=== PATIENT | male | born 1980 | race Caucasian/White ===

== ENCOUNTER 2016-09-03 05:25 | Emergency (ER) | payer OTHER ==
[~2016-09-03] VITALS: Ht 190.5 cm; Wt 82.1 kg
[2016-09-03] MEDS ORDERED: OMEP20TA PO (05:34)
[2016-09-03] MEDS ORDERED: RANI150C PO (05:34)
[2016-09-03] MEDS ORDERED: NS 1,000 ML IV ONE (06:00)
[2016-09-03 06:36] LABS: ALBUMIN 4.1 GM/DL (3.2-5.2); ALBUMIN/GLOBULIN RATIO 1.14 (1.00-1.93); ALKALINE PHOSPHATASE 85 U/L (45-117); ALT/SGPT 35 U/L (12-78); ANION GAP 7 MEQ/L (8-16); AST/SGOT 16 U/L (15-37); BILIRUBIN,DIRECT 0.2 MG/DL (0.0-0.2); BILIRUBIN,TOTAL 0.8 MG/DL (0.2-1.0); BLOOD UREA NITROGEN 18 MG/DL (7-18); CARBON DIOXIDE LEVEL 28 MEQ/L (21-32); CHLORIDE LEVEL 106 MEQ/L (98-107); FREE T4 1.14 NG/DL (0.76-1.46); GLOMERULAR FILTRATION RATE > 60.0 (>60); GLUCOSE, FASTING 96 MG/DL (70-105); SODIUM LEVEL 141 MEQ/L (136-145); TOTAL PROTEIN 7.7 GM/DL (6.4-8.2)
[2016-09-03] MEDS ORDERED: GI COCKTAIL 50ML BTL(HYOSCYAMINE/MAALOX/LIDOCAINE VISCOUS)(1:3:1) PO ONE (07:15)
[2016-09-03] MEDS ORDERED: FAMOTIDINE IV BAG 20 MG in APPROPRIATE DILUENT 1 EA IV ONE (07:15)
[2016-09-03 07:16] LABS: BASO % 0.4 % (0.0-1.0); EOS % 0.5 % (0.0-3.0); LARGE UNSTAINED CELL # 0.1 K/mm3 (0.0-0.4); LARGE UNSTAINED CELL % 1.2 % (0.0-4.0); LYMPH # 1.5 K/mm3 (1.5-4.5); LYMPH % 19.9 % (24.0-44.0); MEAN CORPUSCULAR HEMOGLOBIN 31.3 pg (27.0-33.0); MEAN CORPUSCULAR HGB CONC 35.9 g/dl (32.0-36.5); MEAN CORPUSCULAR VOLUME 87.2 fl (80.0-96.0); MONO # 0.5 K/mm3 (0.0-0.8); MONO % 6.8 % (0.0-5.0); NEUTROPHILS # 5.1 K/mm3 (1.8-7.7); NEUTROPHILS % 71.2 % (36.0-66.0); PLATELET COUNT, AUTOMATED 157 k/mm3 (150-450); RED CELL DISTRIBUTION WIDTH 12.7 % (11.5-14.5); WHITE BLOOD COUNT 7.2 K/mm3 (4.0-10.0)
[2016-09-03] MEDS ORDERED: PROT1TAB2 PO (07:45)
[2016-09-03 08:16] VITALS: BP 120/72
--- NOTE | 2016-09-03 21:44 | ECGEPIP ---
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
== END 2016-09-03 08:18 | disposition home or self-care (01) ==
LOC: M ED 06:11
DX: K21.0 Gastro-esophageal reflux disease with esophagitis (principal)

== ENCOUNTER → 2016-10-06 | Outpatient (CLI) | payer OTHER ==
[~2016-10-06] VITALS: Ht 180.3 cm; Wt 83.9 kg
[~2016-10-06] MED LIST: LIDOCAINE 2% INJ 100 MG/5 ML SDV (FOR ANES.) As Ordered ONE; MAXA10TA14 PO; NS 1,000 ML IV ONE; OMEP20TA PO; PROPOFOL 200 MG/20 ML VIAL As Ordered ONE; PROT1TAB2 PO; PROTPAK PO; RANI150C PO
--- NOTE | 2016-10-06 15:28 | ROOR ---
Patient Name: Rudy Gordon Procedure Date: 10/06/2016 3:17 PM Date of : 1980 Age: 36 Room: [facility] Gender: Male Note Status: Finalized Procedure: Upper GI endoscopy Indications: Heartburn, Suspected esophageal reflux Providers: Yuniel SEGAL MD Referring MD: CONRADO ENCISO MD Requesting Provider: Medicines: Monitored Anesthesia Care Complications: No immediate complications. Procedure: Pre-Anesthesia Assessment: - The heart rate, respiratory rate, oxygen saturations, blood pressure, adequacy of pulmonary ventilation, and response to care were monitored throughout the procedure. The Endoscope was introduced through the mouth, and advanced to the second part of duodenum. The upper GI endoscopy was accomplished without difficulty. The patient tolerated the procedure well. Findings: The esophagus was normal. The stomach was normal. The examined duodenum was normal. Impression: - Normal esophagus. - Normal stomach. - Normal examined duodenum. - No specimens collected. Recommendation: - Continue present medications. - Observe patient's clinical course. - Follow an antireflux regimen. Yuniel Segal MD Yuniel SEGAL MD 10/06/2016 3:28:41 PM This report has been signed electronically. Number of Addenda: 0 Note Initiated On: 10/06/2016 3:17 PM Estimated Blood Loss: Estimated blood loss: none.
[2016-10-06 15:58] VITALS: BP 140/67
== END | disposition home or self-care (01) ==
LOC: M OPP 13:54
PROVIDERS: ATTEND Internal Medicine Gastroenterology
DX: R12 Heartburn (principal); R10.13 Epigastric pain; M54.5 Low back pain; M19.90 Unspecified osteoarthritis, unspecified site; M51.9 Unspecified thoracic, thoracolumbar and lumbosacral intervertebral disc disorder; K21.9 Gastro-esophageal reflux disease without esophagitis; G43.909 Migraine, unspecified, not intractable, without status migrainosus; Z79.899 Other long term (current) drug therapy

== ENCOUNTER → 2017-12-18 | Outpatient (REF) | payer OTHER ==
[2017-12-18 14:23] LABS: % NORMAL FORMS 9 % (>=4); IMMOTILITY 55 %; NON PROGRESSIVE MOTILITY (c) 8 %; PROGRESSIVE MOTILITY (a) 37 % (>=32); SEMEN APPEARANCE OPAQUE (OPAQUE); SEMEN VISCOSITY VISCOUS (LIQUID); SPERM CONCENTRATION 137.7 M/ml (>=15.0); SPERM# 275.5 M/Ejac (>=39); TOTAL MOTILITY 45 % (>=40); WBC CONCENTRATION <=1 M/ml (<=1 M/ml)
[2017-12-18 14:24] LABS: TOTAL FUNCTIONAL 21.2 M/Ejac.; TOTAL PROGRESSIVE SPERM 101.6 M/Ejac.
== END ==
LOC: M LAB REF 14:02
DX: Z31.41 Encounter for fertility testing (principal)

== ENCOUNTER → 2019-10-19 | Outpatient (CLI) | payer OTHER ==
[~2019-10-19] MED LIST changes: +CYCL-707 PO; +LIDOCAINE 1% MDV 20ML VIAL As Ordered ONE; -LIDOCAINE 2% INJ 100 MG/5 ML SDV (FOR ANES.) As Ordered ONE; -NS 1,000 ML IV ONE; +OMEP-358 PO; -OMEP20TA PO; -PROPOFOL 200 MG/20 ML VIAL As Ordered ONE; +ZYRTTAB8 PO
[2019-10-19 13:52] VITALS: BP 145/86
--- NOTE | 2019-10-19 16:28 | REP ---
ULTRASOUND-GUIDED RIGHT THYROID BIOPSY The procedure was performed under the direct supervision of Dr. Boo. The risks and benefits of the procedure were explained to the patient and informed consent was obtained. The right thyroid nodule was localized using ultrasound guidance. The skin was prepped and draped in a sterile fashion. 1% lidocaine was used as a local anesthetic. Using ultrasound guidance four fine-needle aspirations were obtained using 25 gauge needles. The patient tolerated the procedure well and there were no immediate complications. After the appropriate amount of monitored convalescence the patient was discharged from the department. Electronically Signed by MIKIE Myers 10/19/2019 03:57 P Electronically Signed by Andrea Boo MD 10/19/2019 04:19 P
== END ==
LOC: M IRPRO 13:02
PROVIDERS: ATTEND Family Medicine
DX: E04.1 Nontoxic single thyroid nodule (principal); M54.2 Cervicalgia

== ENCOUNTER → 2023-01-06 | Outpatient (CLI) | payer OTHER ==
[~2023-01-06] MED LIST changes: -LIDOCAINE 1% MDV 20ML VIAL As Ordered ONE; -MAXA10TA14 PO; +RIZA10TA64 PO
== END ==
LOC: M RAD 08:43
PROVIDERS: ATTEND Physician Assistant Medical
DX: R10.11 Right upper quadrant pain (principal)

== ENCOUNTER 2023-02-10 09:01 | Day surgery (SDC) | payer OTHER ==
[~2023-02-10] VITALS: Ht 182.9 cm; Wt 89.5 kg
[~2023-02-10 09:01] MED LIST changes: +NS 1,000 ML IV ONE
[2023-02-10] MEDS ORDERED: propofoL 200 MG/20 ML VIAL As Ordered ONE ×2 (10:09→10:14)
[2023-02-10] MEDS ORDERED: LIDOCAINE 2% 100MG/5ML SDV (FOR ANES.) As Ordered ONE (10:09)
[2023-02-10] MEDS ORDERED: fentaNYL 100 MCG/2 ML INJECTION As Ordered ONE (10:16)
[2023-02-10 10:37] VITALS: TEMP 96.9
[2023-02-10 11:50] VITALS: BP 143/88; O2SAT 95
== END 2023-02-10 12:33 | disposition home or self-care (01) ==
LOC: M OPP 09:01
PROVIDERS: ATTEND Internal Medicine Gastroenterology
DX: K64.8 Other hemorrhoids (principal); K57.30 Diverticulosis of large intestine without perforation or abscess without bleeding; R10.11 Right upper quadrant pain; R12 Heartburn; K21.9 Gastro-esophageal reflux disease without esophagitis; M19.90 Unspecified osteoarthritis, unspecified site; G43.909 Migraine, unspecified, not intractable, without status migrainosus; J45.909 Unspecified asthma, uncomplicated; G47.30 Sleep apnea, unspecified; Z79.899 Other long term (current) drug therapy
CPT/HCPCS: 43235; 45378; J3010

== ENCOUNTER → 2023-08-07 | Outpatient (CLI) | payer OTHER ==
[~2023-08-07] MED LIST changes: +DIFI200T PO; +HYDR2.5C21 PR; +MAGN400C2 PO; -NS 1,000 ML IV ONE
== END ==
LOC: M PLARAD 09:55
PROVIDERS: ATTEND Internal Medicine
DX: A69.22 Other neurologic disorders in Lyme disease (principal)

== ENCOUNTER → 2023-09-24 | Outpatient (CLI) | payer OTHER ==
[~2023-09-24] MED LIST changes: +LIDOCAINE 1% MDV 20ML VIAL As Ordered ONE
[2023-09-24 13:50] VITALS: BP 131/83; TEMP 98.2; O2SAT 95
== END ==
LOC: M IRPRO 13:47
PROVIDERS: ATTEND Otolaryngology
DX: E04.2 Nontoxic multinodular goiter (principal)

== ENCOUNTER → 2023-09-25 | Outpatient (CLI) | payer OTHER ==
[~2023-09-25] MED LIST changes: +E-Z-GAS II EFFERVESCENT PACKET (SODIUM BICARB./CITRIC ACID/SIMETHICONE) As Ordered ONE; +E-Z-HD 98% w/w 340GM SUSP BTL As Ordered ONE; +E-Z-PAQUE 96% w/w SUSP 176GM BTL As Ordered ONE; -LIDOCAINE 1% MDV 20ML VIAL As Ordered ONE
== END ==
LOC: M RAD 08:47
PROVIDERS: ATTEND Otolaryngology
DX: R13.10 Dysphagia, unspecified (principal); K44.9 Diaphragmatic hernia without obstruction or gangrene; K21.9 Gastro-esophageal reflux disease without esophagitis

== ENCOUNTER → 2024-01-26 | Outpatient (CLI) | payer OTHER ==
[~2024-01-26] MED LIST changes: +ALLE180T33 PO; +DULO1CAP5 PO; -E-Z-GAS II EFFERVESCENT PACKET (SODIUM BICARB./CITRIC ACID/SIMETHICONE) As Ordered ONE; -E-Z-HD 98% w/w 340GM SUSP BTL As Ordered ONE; -E-Z-PAQUE 96% w/w SUSP 176GM BTL As Ordered ONE; +PANT40TA29 PO
== END ==
LOC: M PLAIMG 12:55
PROVIDERS: ATTEND Dentist
DX: M26.659 Arthropathy of unspecified temporomandibular joint (principal)

== ENCOUNTER 2024-02-11 09:38 | Day surgery (SDC) | payer OTHER ==
[~2024-02-11] VITALS: Ht 180.3 cm; Wt 94.7 kg
[2024-02-11] MEDS: LR 1,000 ML IV SCH (10:03)
[2024-02-11] MEDS ORDERED: HYDROmorphone HCL 2MG/ML 1ML VIAL As Ordered ONE (11:16)
[2024-02-11] MEDS ORDERED: MIDAZOLAM INJ 2MG/2ML VIAL As Ordered ONE (11:17)
[2024-02-11] MEDS ORDERED: ONDANSETRON 4MG 2ML VIAL As Ordered ONE (11:17)
[2024-02-11] MEDS ORDERED: propofoL 200 MG/20 ML VIAL As Ordered ONE (11:17)
[2024-02-11] MEDS ORDERED: fentaNYL 100 MCG/2 ML INJECTION As Ordered ONE (11:17)
[2024-02-11] MEDS ORDERED: ROCURONIUM BROMIDE 50MG/5ML VIAL As Ordered ONE (11:18)
[2024-02-11] MEDS ORDERED: SUCCINYLCHOLINE 100MG/5ML SYRINGE As Ordered ONE (11:18)
[2024-02-11] MEDS ORDERED: LIDOCAINE 2% 100MG/5ML SDV (FOR ANES.) As Ordered ONE (11:18)
[2024-02-11] MEDS ORDERED: SUGAMMADEX SODIUM 500 MG/5 ML VIAL (BRIDION) As Ordered ONE (11:18)
[2024-02-11] MEDS ORDERED: ACETAMINOPHEN 1000MG 100ML IV BAG As Ordered ONE (11:27)
[2024-02-11] MEDS ORDERED: fentaNYL 100 MCG/2 ML INJECTION IV PRN (14:50)
[2024-02-11] MEDS: LIDOCAINE W/EPINEPHRINE 1% 20ML VIAL As Ordered ONE (14:52)
[2024-02-11] MEDS: ONDANSETRON 4MG 2ML VIAL IV PRN (16:05)
[2024-02-11] MEDS: oxyCODONE 5MG TAB PO PRN (16:05)
[2024-02-11] MEDS: HYDROMORPHONE HCL 0.5 MG/ 0.5 ML SYRINGE IV PRN (16:31)
[2024-02-11 20:30] VITALS: BP 118/72; TEMP 97.2; O2SAT 96
== END 2024-02-11 20:35 | disposition home or self-care (01) ==
LOC: M SDC 09:38
PROVIDERS: ATTEND Otolaryngology
DX: E04.1 Nontoxic single thyroid nodule (principal); R13.10 Dysphagia, unspecified; J45.909 Unspecified asthma, uncomplicated; G47.30 Sleep apnea, unspecified; K64.9 Unspecified hemorrhoids; Z79.899 Other long term (current) drug therapy; Z90.49 Acquired absence of other specified parts of digestive tract
CPT/HCPCS: 60220; 88307; J0131; J0330; J1100; J1170; J2250; J2405; J3010

== ENCOUNTER → 2024-06-28 | Outpatient (CLI) | payer OTHER | LOC: M RAD 13:49 | PROVIDERS: ATTEND Otolaryngology | DX: E04.2 Nontoxic multinodular goiter (principal) ==

== ENCOUNTER → 2024-07-07 | Outpatient (CLI) | payer OTHER ==
[2024-07-07 09:27] LABS: THYROID STIMULATING HORMONE 0.546 uIU/ML (0.55-4.78)
[2024-07-07 17:43] LABS: TOTAL T3 128.1 NG/DL (60.0-181.0)
[2024-07-07 17:44] LABS: THYROGLOBULIN ANTIBODY < 15.0 U/ML (<60.0); THYROID PEROXIDASE ANTIBODY < 28.0 U/ML (<60.0)
== END ==
LOC: M LAB 08:30
PROVIDERS: ATTEND Otolaryngology
DX: E04.2 Nontoxic multinodular goiter (principal)

== ENCOUNTER → 2024-07-08 | Outpatient (CLI) | payer OTHER ==
[2024-07-08 11:41] LABS: BASO % 0.2 % (0.0-1.0); HEMATOCRIT 50.2 % (42.0-52.0); HEMOGLOBIN 17.1 g/dl (13.5-17.5); LYMPH # 1.3 10^3/uL (1.5-5.0); MEAN CORPUSCULAR HEMOGLOBIN 30.8 pg (27.0-33.0); MEAN CORPUSCULAR HGB CONC 34.1 g/dl (32.0-36.5); MEAN CORPUSCULAR VOLUME 90.5 fl (80.0-96.0); MONO # 0.5 10^3/uL (0.0-0.8); MONO % 4.5 % (2.0-8.0); NEUTROPHILS # 8.6 10^3/uL (1.5-8.5); NEUTROPHILS % 82.7 % (36.0-66.0); PLATELET COUNT, AUTOMATED 283 10^3/uL (150-450); RED BLOOD COUNT 5.55 10^6/uL (4.30-6.10); WHITE BLOOD COUNT 10.4 10^3/uL (4.0-10.0)
[2024-07-08 11:46] LABS: ERYTHROCYTE SEDIMENTATION RATE 6 mm/hr (0-15)
[2024-07-08 12:18] LABS: HEMOGLOBIN A1c 4.9 % (4.0-6.0)
[2024-07-08 12:19] LABS: RHEUMATOID FACTOR QUANT < 3.5 IU/ML (<14)
[2024-07-08 12:26] LABS: ALKALINE PHOSPHATASE 77 U/L (40-129); ALT/SGPT 85 U/L (7.0-40); AST/SGOT 22 U/L (<34); BILIRUBIN,TOTAL 1.1 MG/DL (0.3-1.2); BLOOD UREA NITROGEN 16 MG/DL (9-23); CALCIUM LEVEL 9.3 MG/DL (8.5-10.1); CARBON DIOXIDE LEVEL 20 MMOL/L (20-31); CHLORIDE LEVEL 106 MMOL/L (98-107); CREATININE FOR GFR 0.82 MG/DL (0.70-1.30); FOLATE 10.8 NG/ML (>5.4); FREE T4 1.22 NG/DL (0.89-1.76); GLOMERULAR FILTRATION RATE > 60.0 (>60); GLUCOSE, FASTING 128 MG/DL (60-100); POTASSIUM SERUM 4.2 MMOL/L (3.5-5.1); SODIUM LEVEL 141 MMOL/L (136-145); THYROID STIMULATING HORMONE 0.477 uIU/ML (0.55-4.78); TOTAL PROTEIN 7.6 G/DL (5.7-8.2)
[2024-07-08 12:27] LABS: VITAMIN B12 LEVEL 350 PG/ML (211-911)
[2024-07-09 07:22] LABS: T P ELECTROPHORESIS SO 7.6 g/dL (6.1-8.1)
[2024-07-11 13:38] LABS: ANTI SMITH(Sm) AB <1.0 NEG AI (<1.0 NEG); ANTI-U1 RNP AB <1.0 NEG AI (<1.0 NEG); SSA SJOGRENS A <1.0 NEG AI (<1.0 NEG); SSB SJOGRENS B <1.0 NEG AI (<1.0 NEG)
[2024-07-11 14:46] LABS: IgG P18 AB NON-REACTIVE; IgG P23 AB NON-REACTIVE; IgG P28 AB NON-REACTIVE; IgG P30 AB NON-REACTIVE; IgG P39 AB NON-REACTIVE; IgG P41 AB REACTIVE; IgG P45 AB NON-REACTIVE; IgG P58 AB REACTIVE; IgG P66 AB NON-REACTIVE; IgG P93 AB NON-REACTIVE; IgM P23 AB REACTIVE; IgM P39 AB NON-REACTIVE; IgM P41 AB NON-REACTIVE; LYME IgG WB INTERPRETATION NEGATIVE (NEGATIVE); LYME IgM WB INTERPRETATION NEGATIVE (NEGATIVE)
[2024-07-11 16:42] LABS: ANGIOTENSIN 1 CONVERTING ENZYM 59 U/L (9-67)
[2024-07-12 06:58] LABS: ALBUMIN SPEP 4.8 g/dL (3.8-4.8); ALPHA-1-GLOBULINS SO 0.3 g/dL (0.2-0.3); ALPHA-2-GLOBULINS SO 0.5 g/dL (0.5-0.9); BETA 2 GLOBULIN 0.5 g/dL (0.2-0.5); BETA-GLOBULIN SO 0.4 g/dL (0.4-0.6)
[2024-07-12 10:56] LABS: ANA SCREEN, IFA NEGATIVE (NEGATIVE)
[2024-07-12 14:43] LABS: LYME TOTAL ANTIBODY CIA <= 0.90 Index (<=0.90)
[2024-07-12 20:58] LABS: VITAMIN E(ALPHA TOCOPHEROL) 13.6 mg/L (5.7-19.9); VITAMIN E(GAMMA TOCOPHEROL) < 1.0 mg/L (<=4.3)
[2024-07-13 08:02] LABS: VITAMIN B1 LEVEL WHOLE BLOOD 142 nmol/L (78-185)
[2024-07-13 12:12] LABS: ANTI DS-DNA AB NEGATIVE (NEGATIVE)
[2024-07-13 15:44] LABS: ANTI-HISTONE ANTIBODIES < 1.0 U (<1.0)
[2024-07-14 18:02] LABS: VITAMIN B6,PYRIDOXAL PHOSPHATE 22.3 ng/mL (2.1-21.7)
[2024-07-15 18:32] LABS: MOG FACS NEGATIVE (NEGATIVE)
== END ==
LOC: M PLALAB 08:45
PROVIDERS: ATTEND Psychiatry & Neurology Neurology
DX: E07.9 Disorder of thyroid, unspecified (principal); G36.0 Neuromyelitis optica [Devic]; R20.2 Paresthesia of skin; E53.8 Deficiency of other specified B group vitamins; M35.00 Sjogren syndrome, unspecified

== ENCOUNTER → 2024-07-11 | Outpatient (REF) | LOC: M PLALAB 08:29 | PROVIDERS: ATTEND Internal Medicine | DX: R06.02 Shortness of breath (principal) ==